=== PATIENT | female | born 1970 | race Caucasian/White ===

== ENCOUNTER 2023-04-09 06:31 | Observation (INO) ==
--- NOTE | 2023-03-15 09:36 | PAT Medication Instructions ---
Medication Instructions Date of Service March 15, 2023 Home Medications buspirone 5 mg tablet 5 mg PO BID cholecalciferol (vitamin D3) 50 mcg (2,000 unit) capsule 50 mcg PO QAM levothyroxine 25 mcg capsule 25 mcg PO QAM lorazepam 0.5 mg tablet 0.5 mg PO DAILY PRN Anxiety meloxicam 15 mg tablet 15 mg PO QAM metoprolol succinate 25 mg tablet,extended release 24 hr 25 mg PO QAM omeprazole magnesium 20 mg tablet,delayed release 20 mg PO QAM lisinopril 20 mg-hydrochlorothiazide 12.5 mg tablet 1 tab PO QAM ASK your surgeon for instructions meloxicam 15 mg tablet 15 mg PO QAM DO NOT take the morning of surgery cholecalciferol (vitamin D3) 50 mcg (2,000 unit) capsule 50 mcg PO QAM lisinopril 20 mg-hydrochlorothiazide 12.5 mg tablet 1 tab PO QAM Take morning of surgery With a small sip of water, OTHERWISE NOTHING TO EAT OR DRINK AFTER MIDNIGHT: buspirone 5 mg tablet 5 mg PO BID levothyroxine 25 mcg capsule 25 mcg PO QAM lorazepam 0.5 mg tablet 0.5 mg PO DAILY PRN Anxiety (if needed) metoprolol succinate 25 mg tablet,extended release 24 hr 25 mg PO QAM omeprazole magnesium 20 mg tablet,delayed release 20 mg PO QAM Take evening before surgery buspirone 5 mg tablet 5 mg PO BID lorazepam 0.5 mg tablet 0.5 mg PO DAILY PRN Anxiety (if needed) Other Notes If you have any questions please call us at [phone] or [phone] or [phone] or [phone]
--- NOTE | 2023-03-21 14:01 | Anesthesiology Consultation ---
Date of Service March 21, 2023 Assessment & Plan (1) Encounter for pre-operative examination: Chart Review Chart Review: Acceptable Risk for Surgery and Patient seen in Pre Admission Testing Pt hesitant re: SAB- will discuss with anesthesiologist DOS - Check test AM DOS - Due to BMI- patient is NOT an OPJ candidate Per PAT appt on 03/21/23, patient denies any recent travel or large group activities. Pt is NOT vaccinated for Covid. Will leave to surgeon's discretion if preop Covid testing needed. Educated on importance of using Covid precautions one week prior to surgery Teaching & Discussion Pre-Anesthesia Teaching/Discussion Notes: Instructed NPO after midnight before surgery,except medications with 15 cc of water. Medication instructions provided according to the PAT guidelines. History Surgery Operation Date: 04/09/23 13:05 Proposed Procedures p Right Anterior Total Hip Arthroplasty - Deven Rosario DO Height/Weight Height: 5 ft 4 in Weight: 113.7 kg Allergies Allergy/AdvReac Type Severity Reaction Status Date / Time ketorolac [From Toradol] Allergy ALL OVER Verified 03/14/23 10:45 ITCHING sulfamethoxazole Allergy Hives Verified 03/14/23 10:45 [From Bactrim] trimethoprim [From Bactrim] Allergy Hives Verified 03/14/23 10:45 Medications Home Medications Medication Instructions Recorded Confirmed Last Taken buspirone 5 mg tablet 5 mg PO BID 03/13/23 03/14/23 Unknown cholecalciferol (vitamin D3) 50 50 mcg PO QAM 03/13/23 03/14/23 Unknown mcg (2,000 unit) capsule levothyroxine 25 mcg capsule 25 mcg PO QAM 03/13/23 03/14/23 Unknown lorazepam 0.5 mg tablet 0.5 mg PO DAILY PRN Anxiety 03/13/23 03/14/23 Unknown meloxicam 15 mg tablet 15 mg PO QAM 03/13/23 03/14/23 Unknown metoprolol succinate 25 mg 25 mg PO QAM 03/13/23 03/14/23 Unknown tablet,extended release 24 hr omeprazole magnesium 20 mg 20 mg PO QAM 03/13/23 03/14/23 Unknown tablet,delayed release lisinopril 20 1 tab PO QAM 03/14/23 03/14/23 Unknown mg-hydrochlorothiazide 12.5 mg tablet Past Medical History Medical History Anxiety GERD (gastroesophageal reflux disease) Well controlled and stable with meds History of anesthesia problem FOLLOWING INTRATHECAL FOR CHILDBIRTH, SHE GOT VERY SICK-NAUSEA AND VOMITING AND HEADACHE" History of COVID-2020, OTC TEST, NOT HOSP; CONGESTION, STUFFY NOSE, COUGH, FATIGUE>RESOLVED. Hypertension Hypothyroidism Exercise / Class Metabolic Activity II 4-5 Yardwork/Stairs/Walk up hill (one flight of stairs - no chest pain or SOB ) Past Surgical History Surgical History Hx laparoscopic cholecystectomy Past Anesthesia History No Hx of Anesthesia Complications (with exception to severe PONV after epidural with childbirth ; just took a little more medication to put under for sari) and No Family Hx of Anesthesia Complications (with exception to PONV (mother)) History of PONV No Hx of Motion Sickness and History of PONV Social History Smoking Status: Never smoker Do You Dip or Chew Tobacco: No Hx Alcohol Use: Yes alcohol intake frequency: holidays/special occasions only Hx Substance Use: No substance use type: does not use Review of Systems Hx of snoring- no witnessed apea - no hx of sleep study Patient denies chest pain, shortness of breath, dyspnea on exertion, cough, wheezing, palpitations. No hx of seizures, stroke, MD. No hx of blood clots or blood transfusions Physical Exam Vital Signs VITALS BP 128/82 P 81 TEMP 98.0 SP02 97% RESP 16 Constitutional no acute distress ENMT Mouth: no TMJ clicking Thyromental Distance: > or= 3.5 Finger Breadths (3.5) Mallampati Class: II Broken left lower side tooth [place] to molar Neck + limited neck extension (mild) Respiratory normal respiratory effort; no respiratory distress Auscultation: lungs clear to auscultation bilaterally; no wheezes Cardiovascular Rate/Rhythm: regular rate and regular rhythm Heart Sounds: no murmur Vessels: no carotid bruit Musculoskeletal Spine: no pain with cervical ROM Extremities: extremities normal to inspection Psychiatric Orientation: alert Lab Results Anesthesia Preop Results Results Anesthesia Widget: WBC 9.19 K/ul (4.8-10.8) 03/21/23 Hgb 12.5 g/dl (12.0-16.0) 03/21/23 Hct 38.0 % (37.0-47.0) 03/21/23 Plt 292 K/uL (130-400) 03/21/23 Na 137 mmol/L (136-145) 03/21/23 K 3.5 mmol/L (3.5-5.1) 03/21/23 Cl 104 mmol/L (98-107) 03/21/23 CO2 27 mmol/L (21-32) 03/21/23 BUN 14 mg/dl (6-23) 03/21/23 Creat 0.90 mg/dl (0.6-1.2) 03/21/23 Glucose Level 90 mg/dl (70-99(Fasting)) 03/21/23 PT 11.1 Seconds (9.0-12.0) 03/21/23 PTT 26.5 Seconds (21.0-31.0) 03/21/23 INR 1.0 (0.9-1.1) 03/21/23 Blood Type A Positive 03/21/23 Antibody Screen NEGATIVE 03/21/23 Testing Electrocardiogram Date: 03/21/23 Findings: + NSR @ (83bpm ) Normal EKG per cardio Chest X-Ray Date: 03/21/23 Findings: + NAD COVID-19 Risk Screen Screening Information COVID-19 Screen Date: 03/21/23 Exposure 21 Days Family/Household +COVID Last 21 Days: No Exposure 10 Days Any COVID Exposure Last 10 Days: No Symptoms Last 10 Days Experienced COVID Sx Last 10 Days: No + COVID 0-90 Days COVID + in Last 0-90 Days: No Risk Plan COVID Risk Plan: No Risk Identified Patient Education COVID Preop Screening Education Complete: Yes
[~2023-04-09 06:31] MED LIST: ACETAMINOPHEN 500 MG TAB PO SCH; BUPIVACAINE 0.5 % 5 MG/1 ML PF 10ML VIAL ONE; CLONIDINE HCL INFIL SCH; DEXAMETHASONE INFIL SCH; FAMOTIDINE 20 MG TAB PO SCH; GABAPENTIN 900 MG DOSE PO SCH; KETAMINE HCL INFIL SCH; LR 500ML BOLUS, THEN 15ML/HR IV SCH; LR 60ML/HR IV SCH; TRANEXAMIC ACID 1,000 MG **IV Intra-op IV SCH; TRANEXAMIC ACID 1,000 MG **IV Pre-op IV SCH; [UNRECOGNIZED DRUG - OTHER] INFIL SCH; ceFAZolin 2000MG 2,000 MG/15 ML SYR IV SCH; dexAMETHasone 4 MG TAB PO SCH
[2023-04-09] MEDS ORDERED: ePHEDrine sulfate 50 MG/ML AMP IV PRN (07:58)
[2023-04-09] MEDS ORDERED: ONDANSETRON INJ 2 MG/ML 2 ML VIAL IV PRN ×2 (07:58→13:15)
[2023-04-09] MEDS ORDERED: ATROPINE SULFATE 0.1 MG/ML 10ML SYR IV PRN (07:58)
[2023-04-09] MEDS ORDERED: fentaNYL citrate PF 100 MCG/2 ML VIAL IV PRN (07:58)
--- NOTE | 2023-04-09 08:30 | History & Physical Bridge Note ---
Date of Service April 09, 2023 History & Physical Bridge Note I have examined the patient, reviewed the History & Physical and in the interval since the performance of the History & Physical I have noted the following changes of clinical significance: no changes noted
[2023-04-09] MEDS ORDERED: PROPOFOL IV EMULSION 10 MG/ML 20 ML VIAL IV ONE (08:44)
[2023-04-09] MEDS ORDERED: MIDAZOLAM HCL 1 MG/ML 2ML VIAL ONE ×2 (08:44→09:06)
[2023-04-09] MEDS ORDERED: KETAMINE 50 MG/5 ML SYRINGE ONE (08:45)
--- NOTE | 2023-04-09 10:57 | Operative Report ---
PG Post Operative Report Pre & Post Diagnosis Operation Date: 04/09/23 09:15 Pre-Op Diagnosis: Right Hip Osteoarthritis Post-Op Diagnosis: Right Hip Osteoarthritis I identified the patient and participated in the time-out.: Yes Procedure Operation Date: 04/09/23 09:15 Actual Procedures p Right Anterior Total Hip Arthroplasty(Right) - Deven Rosario DO Surgeon Deven Rosario DO Breaker Table Worker Deven Sinclair PA-C Estimated Blood Loss 250 Findings Consistent with Post-Op Diagnosis Specimens Right femoral head Description of Procedure Implants used I used a ZimmerBiomet total hip arthroplasty system with a size 2 standard offset Avenir Complete stem, a 50 mm G7 cup with a 25mm screw, an E1 polyethylene liner, a 36 mm ceramic head with a 0 neck. Cheryle arrived at the hospital for the above procedure. She was seen in the preoperative holding area and the operative extremity was identified and signed. She was given a spinal anesthetic, a preoperative antibiotic, and TXA. She was then taken back to the operating room and laid on the table in the supine position. She was given basic sedation. The operative leg was secured to a Puristst leg positioner. The hip was then prepped and draped in sterile fashion. A timeout was done and the patient and the operative extremity was properly identified. An anterior approach was used. Dissection was taken down through the fascia and the tensor muscle belly was retracted laterally and the rectus was retracted medially. The circumflex vessels were identified and ligated. The capsule was then incised and tagged for later repair. The femoral neck was then cut and the femoral head was removed. The acetabulum was exposed. Time was spent doing a complete circumferential labral release. Sequential reaming of the acetabulum up to a size 49 reamer was done. Final reamings were done under fluoroscopy to ensure appropriate version. A Biomet 50 mm G7 cup was then impacted into place. A single 25 mm screw was placed. The E1 polyethylene liner was then snapped into place. Surrounding soft tissues were then injected with 100 cc of an orthopedic pain control cocktail. The proximal femur was then exposed. Sequential broaching up to a size 2 broach was done. Off that broach a size 36 head with a 0 neck was trialed. The hip was reduced and fluoroscopic images showed anatomic alignment of the implants in acceptable length. The broach was removed. The final size 2 standard offset Avenir Complete stem was then impacted into place. A ceramic 36 mm head with a 0 neck was then impacted onto the stem and the hip was reduced. Final fluoroscopic images showed anatomic alignment of the hip. The capsule was then closed with #1 Vicryl suture. A dilute betadyne lavage was then done for 3 minutes. The joint was then irrigated with normal saline solution. The fascia was closed with #1 PDS suture. Skin was closed with 2-0 Vicryl, sonia, and a Silverlon dressing. She was then transferred to a hospital bed and taken to the post anesthesia care unit in stable condition. She tolerated the procedure well. Deven Sinclair PA-C, was present for the entire procedure. He was critical for patient positioning, prepping, draping, retraction exposure, wound closure and application of sterile dressing. I attest to the content of the Intraoperative Record and any orders documented therein. Any exceptions are noted below.
--- NOTE | 2023-04-09 12:19 | XRay Report ---
AP PELVIS, CROSSTABLE LATERAL RIGHT HIP History: Right total hip arthroplasty. Degenerative arthritis. Postop. FINDINGS: The patient is status post a right total hip arthroplasty. The hardware is intact. No fract ure or dislocation. Skin sonia are in place. IMPRESSION: Right total hip arthroplasty. No evidence for hardware complication ACT 112: Negative or not required by law. Electronically signed by: Nicholas Cho M.D. 04/09/2023 12:18 PM
[2023-04-09] MEDS ORDERED: LORazepam 0.5 MG TAB PO PRN (13:15)
[2023-04-09] MEDS ORDERED: HYDROmorphone INJ 0.5 MG/0.5 ML SYR IV PRN (13:15)
[2023-04-09] MEDS ORDERED: NALOXONE HCL 0.4 MG/1 ML VIAL/CARP IV PRN (13:15)
[2023-04-09] MEDS ORDERED: MAGNESIUM HYDROXIDE SUSP 30 ML UDC PO PRN (13:15)
[2023-04-09] MEDS ORDERED: bisacodyL 10 MG SUPP PR PRN (13:15)
[2023-04-09] MEDS ORDERED: METOCLOPRAMIDE HCL INJ 5 MG/ML 2 ML VIAL IV PRN (13:15)
--- NOTE | 2023-04-09 13:16 | Fluoroscopy Report ---
FL hip RT 1V CLINICAL HISTORY: RIGHT ANTERIOR HIP COMPARISON STUDY: None. FLUOROSCOPY TIME: 19 seconds FLUOROSCOPY IMAGES: 1 Ka,r: 1.6 mGy FINDINGS: There is a right total hip arthroplasty in place. The hardware appears intact. No fracture or dislocation. IMPRESSION: Fluoroscopic assistance as above. ACT 112: Negative or not required by law. Electronically signed by: Nicholas Cho M.D. 04/09/2023 1:15 PM
[2023-04-09] MEDS: ALLERGY Noted to ORDERED Medication SCH ×5 (13:25→13:29)
[2023-04-09] MEDS: oxyCODONE HCL IR 5 MG TAB (IMMEDIATE RELEASE) PO PRN ×3 (14:08→20:12)
[2023-04-09] MEDS: SODIUM CHLORIDE 0.9% 1000ML 1,000 ML IV SCH (14:08)
[2023-04-09] MEDS: ACETAMINOPHEN 500 MG TAB PO SCH ×2 (14:08→21:02)
--- NOTE | 2023-04-09 14:37 | Anesthesiology Progress Note ---
Date of Service April 09, 2023 Anesthesia Post Procedure Vital Signs Vital Signs: Temp Pulse Pulse Resp BP Pulse Ox O2 Del Method 04/09/23 13:35 36.5 C 100 H 18 111/74 97 Room Air 04/09/23 12:35 36.7 C 106 H 16 108/76 99 Room Air 04/09/23 13:02 90 18 116/80 98 Room Air 04/09/23 12:20 36.4 C L 102 H 22 109/69 99 Room Air 04/09/23 12:10 105 H 22 120/60 99 Room Air 04/09/23 11:50 109 H 15 113/74 98 Room Air 04/09/23 11:40 118 H 12 117/91 100 Room Air 04/09/23 11:31 36.4 C L 120 H 15 107/75 100 Room Air Pain Intensity Right Hip: Pain Intensity: 3 Transfer of Care Handoff Completed per policy Notes Mental Status: alert / awake / arousable and participated in evaluation Patient Amnestic to Procedure: Yes Nausea / Vomiting: adequately controlled Pain: adequately controlled Airway Patency, RR, SpO2: stable & adequate BP & HR: stable & adequate Hydration State: stable & adequate Anesthetic Complications: no major complications apparent and Pt Satisfied with anesthetic care
--- NOTE | 2023-04-09 14:40 | Anesthesiology Progress Note ---
Date of Service April 09, 2023 Anesthesia Post Procedure Vital Signs Vital Signs: Temp Pulse Pulse Resp BP Pulse Ox O2 Del Method 04/09/23 14:38 36.5 C 100 H 18 114/77 98 Room Air 04/09/23 13:35 36.5 C 100 H 18 111/74 97 Room Air 04/09/23 12:35 36.7 C 106 H 16 108/76 99 Room Air 04/09/23 13:02 90 18 116/80 98 Room Air 04/09/23 12:20 36.4 C L 102 H 22 109/69 99 Room Air 04/09/23 12:10 105 H 22 120/60 99 Room Air 04/09/23 11:50 109 H 15 113/74 98 Room Air 04/09/23 11:40 118 H 12 117/91 100 Room Air 04/09/23 11:31 36.4 C L 120 H 15 107/75 100 Room Air Pain Intensity Right Hip: Pain Intensity: 3 Transfer of Care Handoff Completed per policy Notes Mental Status: alert / awake / arousable and participated in evaluation Patient Amnestic to Procedure: Yes Nausea / Vomiting: adequately controlled Pain: adequately controlled Airway Patency, RR, SpO2: stable & adequate BP & HR: stable & adequate Hydration State: stable & adequate Neuraxial Anesthesia: was administered and sensory block is resolving Anesthetic Complications: no major complications apparent and Pt Satisfied with anesthetic care
[2023-04-09] MEDS: DOCUSATE SODIUM 100 MG CAP PO SCH (20:08)
[2023-04-09] MEDS: busPIRone 5 MG TAB PO SCH (20:10)
[2023-04-09] MEDS ORDERED: SENNA 8.6 MG TAB PO SCH (21:00)
[2023-04-09] MEDS: ceFAZolin 2000MG 2,000 MG/15 ML SYR IV SCH (21:14)
[2023-04-10] MEDS: SODIUM CHLORIDE 0.9% 1000ML 1,000 ML IV SCH (00:41)
[2023-04-10] MEDS ORDERED: Nursing to Pharmacy Communication SCH (01:45)
[2023-04-10] MEDS: oxyCODONE HCL IR 5 MG TAB (IMMEDIATE RELEASE) PO PRN ×2 (03:49→08:24)
[2023-04-10] MEDS: ACETAMINOPHEN 500 MG TAB PO SCH (05:45)
[2023-04-10] MEDS: ceFAZolin 2000MG 2,000 MG/15 ML SYR IV SCH (05:46)
[2023-04-10] MEDS ORDERED: LEVOTHYROXINE SODIUM 25 MCG TABLET PO SCH (06:30)
--- NOTE | 2023-04-10 06:46 | Orthopedic Progress Note ---
Date of Service April 10, 2023 Assessment & Plan (1) Status post right hip replacement: Overall she is doing very well. She is not having much pain in the right hip. She will be seen by physical therapy today for ambulation and range of motion exercises. She is on aspirin for DVT prophylaxis. She can be discharged home later today. She will follow-up with orthopedics in 2 weeks. Mak Lobato was seen and examined at bedside this morning. Overall she is doing very well. She denies any much pain in the right hip. She has been up and ambulating to the bathroom. She has no complaints.. Review of Systems All systems reviewed & are unremarkable except as noted in HPI & below. Physical Exam On physical examination of the right hip, the dressing is clean and dry. Her leg is out full extension. She has active dorsiflexion and plantarflexion of her right ankle.. Results & Data Results & Data Laboratory Results . Diagnostic Findings Postoperative x-rays of the right hip show the prosthesis to be in anatomic alignment without any evidence of fracture, dislocation, or loosening. PG Care Time/CCT Total # of Minutes Spent Total Time Spent with Patient: Total time spent is greater than 50% in coordination of care (as documented) at patient's floor/unit and/or counseling patient: Coding Level of Care Code 64536 Post Operative Follow-Up Diagnoses Status post right hip replacement Z96.641
--- NOTE | 2023-04-10 06:47 | Discharge Summary ---
Date of Service April 10, 2023 Principal Diagnosis Same as "Discharge Diagnosis" noted below under Discharge Instructions. Discharge Exam On physical examination of the right hip, the dressing is clean and dry. Her leg is out full extension. She has active dorsiflexion and plantarflexion of her right ankle.. Discharge Data Procedures Performed Operation Date: 04/09/23 09:15 Actual Procedures p Right Anterior Total Hip Arthroplasty(Right) - Deven Rosario DO Ordered Studies 04/09/23 09:15 FL hip RT 1V Routine Hospital Course (1) Status post right hip replacement: On April 09, 2023 Cheryle arrived at [facility] and underwent a right hip replaced without complication. She had a spinal anesthetic. Postoperatively she was started on aspirin for DVT prophylaxis and transferred to the general orthopedic floors. Her hospital course was uneventful. On postop day #1, her vital signs were stable and her pain was well controlled. She was able to participate well with physical therapy doing ambulation and range of motion exercises. She was then discharged home. She will follow-up with orthopedics in 2 weeks. PG Care Time/CCT Total # of Minutes Spent Total Time Spent with Patient: Total time spent is greater than 50% in coordination of care (as documented) at patient's floor/unit and/or counseling patient: Discharge Plan Discharge Items Patient Disposition: Home - Home Health Services Reason For Visit: Right Hip Degenerative Joint Disease Discharge Diagnosis: Right hip replacement Activity: Per Instructions section Non-emergency contact: Surgeon Call non-emergency contact if: your wound has increased redness and your wound has increased drainage Follow-up/Referrals: Claudia Wagoner PA-C [Primary Care Provider] - Diet: Regular Addtl Attending Provider Instructions: Activity and Therapy Recommendations: * If you are using [facility] then therapy will be provided at your home until they feel you have accomplished all of your goals. * If you are using [facility] then Physical Therapy will be provided until they feel you are ready to start Outpatient Physical Therapy. * If you are not using home therapy then Outpatient Physical Therapy should start about 3-5 days from your day of surgery. Therapy will last about 6-10 weeks * You were shown a series of exercises in the hospital. Do these exercises three times each day including the exercises you were shown in physical therapy. * Get up and walk several times each day.~ For the first four weeks, try not to stand or walk for more than one hour at a time. If you do stand or walk for more than one hour, you will not hurt anything, but your leg will likely swell.~~ * As you feel comfortable, you may change from the walker or crutches to a cane and~then to independent walking. Medications: * Narcotic You will likely be sent home from the hospital with a prescription for the narcotic pain medication that worked best throughout your stay. * Aspirin Most patients will be required to take Aspirin 81mg twice a day for 6 weeks after surgery. This is obtained [id number] and a prescription is not necessary. * Other medications may be prescribed for specific circumstances. If you have any questions, please call the office at . * Resume previous home medications unless otherwise instructed TEDs/Elastic Stockings: The white elastic stockings help limit swelling and prevent blood clots from forming in your legs. The more you wear them, the more they work. Wear them for six weeks. Dressing Care: Leave the Silverlon dressing in place for 7 days. After 7 days you may remove the dressing. If the incision is not draining then you may leave the sonia open to air. If there is a little bit of drainage or if the sonia are getting stuck on your clothing then cover the incision with a dry dressing. The sonia will be removed at your 2 week follow-up appointment. Showering: You may shower with the Silverlon dressing in place. Do not let the shower spray hit the dressing directly. Pat the Silverlon dressing dry. If the dressing becomes wet underneath, then simply remove the dressing. Keep the incision dry until you are 7 days out from the day of surgery. After 7 days you may remove the Silverlon dressing and shower with the sonia exposed. Let soapy water run over the sonia and pat them dry. Do not scrub or soak the incision. Things To Watch For: * Drainage from the incision site that occurs more than one week after your surgery. * Increased redness at the incision site. * Fever above 102 degrees Fahrenheit. * Unusual chest pain or shortness of breath. * Call [facility] at with any of the above problems Follow-Up Visit: Follow-up with Dr. Rosario's PA (Deven Sinclair) 2-3 weeks after your day of surgery. He will remove your sonia and answer any questions. If you have any additional questions or concerns, Dr Rosario is usually in the office at the same time and will be available An appointment was probably scheduled when you signed-up for surgery in the office. If you have any questions call Office Instructions: More detailed instructions as well as Frequently Asked Questions were provided in a folder by our office when you signed-up for surgery. Please review these instructions when you get home. If you have any further questions or concerns, please feel free to call the office at [phone] Pending Studies at Discharge: No Stand-Alone Forms: My [facility] [place], Smoking Cessation Medications and DC Order Prescriptions: New aspirin [Adult Aspirin Regimen] 81 mg tablet,delayed release (DR/EC) 81 mg PO BID Qty: 84 0RF oxycodone-acetaminophen 5-325 mg tablet 1 tab PO Q6H PRN (Reason: pain) Qty: 30 0RF Continued buspirone 5 mg tablet 5 mg PO BID levothyroxine 25 mcg capsule 25 mcg PO QAM meloxicam 15 mg tablet 15 mg PO QAM metoprolol succinate 25 mg tablet extended release 24 hr 25 mg PO QAM omeprazole magnesium 20 mg tablet,delayed release (DR/EC) 20 mg PO QAM lorazepam 0.5 mg tablet 0.5 mg PO DAILY PRN (Reason: Anxiety) cholecalciferol (vitamin D3) 50 mcg (2,000 unit) capsule 50 mcg PO QAM lisinopril-hydrochlorothiazide 20-12.5 mg Tablet 1 tab PO QAM Admission Data Admit Date/Time: 04/09/23 11:37 Attending Provider: Deven Rosario Admit Provider: Deven Rosario Primary Care Provider: Claudia Wagoner
[2023-04-10] MEDS ORDERED: dexAMETHasone 4 MG TAB PO SCH (08:00)
[2023-04-10] MEDS: busPIRone 5 MG TAB PO SCH (08:24)
[2023-04-10] MEDS: DOCUSATE SODIUM 100 MG CAP PO SCH (08:25)
[2023-04-10] MEDS ORDERED: METOPROLOL SUCC 25MG EXT REL TAB PO SCH (09:00)
[2023-04-10] MEDS ORDERED: PANTOprazole 40 MG TAB PO SCH (09:00)
[2023-04-10] MEDS ORDERED: MULTIVITAMIN TAB PO SCH (09:00)
[2023-04-10] MEDS ORDERED: LISINOPRIL/HCTZ 20/12.5MG 1 TAB TAB PO SCH (09:00)
[2023-04-10] MEDS ORDERED: ASPIRIN 81 MG ECTAB PO SCH (09:00)
== END 2023-04-10 12:57 | disposition home health service (06) ==
LOC: 3E 06:31 → ASU 06:31